=== PATIENT | female | born 1965 | race African-American/Black ===

== ENCOUNTER 2017-04-04 12:47 | Emergency (ER) | payer OTHER ==
[~2017-04-04] VITALS: Ht 157.5 cm; Wt 95.5 kg
[2017-04-04] MEDS ORDERED: BACL10TA PO (12:53)
[2017-04-04] MEDS ORDERED: TRIA1CAP2 PO (12:53)
[2017-04-04] MEDS ORDERED: MIRAUD PO (12:53)
[2017-04-04] MEDS ORDERED: IBUP-2070 PO (12:53)
[2017-04-04 14:23] LABS: HEMATOCRIT 40.2 % (36-46); HEMOGLOBIN 13.2 g/dL (12.0-16.0); LYMPHOCYTES # (AUTO) 1.9 K/uL (1.0-4.8); MEAN CORPUSCULAR HGB CONC 32.8 G/dL (31.0-37.0); MEAN CORPUSCULAR VOLUME 88 fL (80-100); MONOCYTES # (AUTO) 0.3 K/uL (0.1-1.0); PLATELET COUNT (AUTO) 292 K/uL (150-450); RED BLOOD CELL COUNT(AUTO) 4.54 MIL/uL (4.00-5.20); RED CELL DISTRIBUTION WIDTH 13.4 % (11.5-14.5); WHITE BLOOD COUNT (AUTO) 10.1 K/uL (4.5-11.0)
[2017-04-04 14:31] LABS: ANION GAP 6 mmol/L (8-16); BASOPHILS % (AUTO) 0.3 % (0.0-2.0); CALCIUM, TOTAL 8.8 mg/dL (8.8-10.5); CARBON DIOXIDE 31 mmol/L (22-29); CHLORIDE 103 mmol/L (98-107); CREATININE 0.66 mg/dL (0.60-1.30); GLOMERULAR FILTR. RATE CALC > 60 mL/min (>60); LYMPHOCYTES % (AUTO) 18.1 % (22.0-44.0); MONOCYTES % (AUTO) 3.1 % (2.0-9.0); POTASSIUM 3.7 mmol/L (3.5-5.1); SODIUM SERUM 140 mmol/L (136-145); UREA NITROGEN, BLOOD 7 mg/dL (7-18)
[2017-04-04 14:32] LABS: BASOPHILS # (AUTO) 0.03 K/uL (0.00-0.20); EOSINOPHILS # (AUTO) 0.05 K/uL (0.00-0.70); EOSINOPHILS % (AUTO) 0.5 % (1.0-6.0)
[2017-04-04 14:36] LABS: PROTHROMBIN TIME 10.7 SEC (9.4-11.6)
[2017-04-04 14:37] LABS: ALANINE AMINOTRANSFERASE 23 U/L (12-78); ALBUMIN 3.3 g/dL (3.4-5.0); ASPARTATE AMINOTRANSFERASE 19 U/L (15-37); BILIRUBIN,TOTAL 0.5 mg/dL (0.1-1.0); TOTAL PROTEIN, SERUM 7.8 g/dL (6.4-8.2)
[2017-04-04 15:08] LABS: ADD UA MICROSCOPIC YES; APPEARANCE,URINE CLOUDY (CLEAR); GLUCOSE, URINE (UA) NEGATIVE (NEGATIVE); KETONES,URINE NEGATIVE (NEGATIVE); LEUKOCYTE ESTERASE ,URINE NEGATIVE (NEGATIVE); OCCULT BLOOD,URINE LARGE (NEGATIVE); PROTEIN,URINE NEGATIVE (NEGATIVE)
[2017-04-04 15:19] LABS: SQUAMOUS EPITHELIAL CELL,UR Moderate /LPF (None Seen)
[2017-04-04] MEDS ORDERED: ONDANSETRON HCL 4 MG/2 ML VIAL IVP ONE ×2 (15:45→19:00)
[2017-04-04] MEDS ORDERED: HYDROmorphone 2 MG/ML SYRINGE IVP ONE (17:15)
[2017-04-04] MEDS ORDERED: SODIUM PHOS/SODIUM BIPHOS 133 ML ENEMA PR ONE (18:15)
[2017-04-04 18:58] VITALS: BP 135/82
== END 2017-04-04 19:10 | disposition home or self-care (01) ==
LOC: EMS 12:48
DX: K59.00 Constipation, unspecified (principal); F17.210 Nicotine dependence, cigarettes, uncomplicated
CPT/HCPCS: 36415; 74022; 74176; 80053; 81001; 83690; 85025; 85610; 85730; 93005; 96374; 96375; 96376; 99285; J1170; J2405

== ENCOUNTER 2017-09-16 17:43 | Emergency (ER) | payer OTHER ==
[~2017-09-16] VITALS: Ht 157.5 cm; Wt 97.7 kg
[~2017-09-16 17:43] MED LIST: BACL10TA PO; IBUP-2070 PO; MIRAUD PO; TRIA1CAP2 PO
[2017-09-16 19:26] VITALS: BP 149/89
== END 2017-09-16 19:27 | disposition home or self-care (01) ==
LOC: EMS 17:45
DX: S80.861A Insect bite (nonvenomous), right lower leg, initial encounter (principal); F17.210 Nicotine dependence, cigarettes, uncomplicated; R03.0 Elevated blood-pressure reading, without diagnosis of hypertension; W57.XXXA Bitten or stung by nonvenomous insect and other nonvenomous arthropods, initial encounter; Y93.89 Activity, other specified; Y92.89 Other specified places as the place of occurrence of the external cause; Y99.8 Other external cause status
CPT/HCPCS: 99283

== ENCOUNTER 2017-10-23 13:10 | Emergency (ER) | payer OTHER ==
[~2017-10-23] VITALS: Ht 154.9 cm; Wt 97.7 kg
[2017-10-23 13:59] LABS: BASOPHILS # (AUTO) 0.03 K/uL (0.00-0.20); BASOPHILS % (AUTO) 0.2 % (0.0-2.0); EOSINOPHILS # (AUTO) 0.09 K/uL (0.00-0.70); EOSINOPHILS % (AUTO) 0.74 % (1.0-6.0); HEMATOCRIT 40.1 % (36-46); HEMOGLOBIN 13.2 g/dL (12.0-16.0); LYMPHOCYTES # (AUTO) 2.6 K/uL (1.0-4.8); MEAN CORPUSCULAR HGB CONC 32.9 G/dL (31.0-37.0); MEAN CORPUSCULAR VOLUME 88 fL (80-100); MONOCYTES # (AUTO) 0.5 K/uL (0.1-1.0); NEUTROPHILS # (AUTO) 9.5 K/uL (1.8-7.7); PLATELET COUNT (AUTO) 257 K/uL (150-450); RED BLOOD CELL COUNT(AUTO) 4.55 MIL/uL (4.00-5.20); RED CELL DISTRIBUTION WIDTH 13.8 % (11.5-14.5); WHITE BLOOD COUNT (AUTO) 12.7 K/uL (4.5-11.0)
[2017-10-23 14:00] LABS: RBC MORPHOLOGY COMMENT NORMAL RBC MORPH
[2017-10-23 14:22] LABS: ANION GAP 11 mmol/L (8-16); CALCIUM, TOTAL 8.9 mg/dL (8.8-10.5); CARBON DIOXIDE 28 mmol/L (22-29); CHLORIDE 102 mmol/L (98-107); CREATININE 0.79 mg/dL (0.60-1.30); GLOMERULAR FILTR. RATE CALC > 60 mL/min (>60); SODIUM SERUM 141 mmol/L (136-145); UREA NITROGEN, BLOOD 10 mg/dL (7-18)
[2017-10-23 14:25] LABS: ALANINE AMINOTRANSFERASE 23 U/L (12-78); ALBUMIN 3.4 g/dL (3.4-5.0); ASPARTATE AMINOTRANSFERASE 20 U/L (15-37); BILIRUBIN,TOTAL 0.3 mg/dL (0.1-1.0); TOTAL PROTEIN, SERUM 7.5 g/dL (6.4-8.2)
[2017-10-23] MEDS ORDERED: ONDANSETRON HCL 4 MG/2 ML VIAL IVP ONE (15:00)
[2017-10-23] MEDS ORDERED: MORPHINE SULFATE 4 MG/ML SYRINGE IVP ONE (15:00)
[2017-10-23] MEDS ORDERED: SODIUM CHLORIDE 0.9% 1,000 ML IV ONE (15:00)
[2017-10-23] MEDS ORDERED: POTASSIUM CHLORIDE 20 MEQ ER TABLET PO ONE (15:00)
[2017-10-23 15:25] LABS: ADD UA MICROSCOPIC YES; APPEARANCE,URINE CLEAR (CLEAR); GLUCOSE, URINE (UA) NEGATIVE (NEGATIVE); KETONES,URINE NEGATIVE (NEGATIVE); LEUKOCYTE ESTERASE ,URINE TRACE (NEGATIVE); OCCULT BLOOD,URINE NEGATIVE (NEGATIVE); PH,URINE 7.5 (5.0-8.0); PROTEIN,URINE NEGATIVE (NEGATIVE)
[2017-10-23 15:29] LABS: RBC,URINE None Seen /HPF (0-2); SQUAMOUS EPITHELIAL CELL,UR Many /LPF (None Seen); WBC,URINE 0-2 /HPF (0-5)
[2017-10-23] MEDS ORDERED: KETOROLAC TROMETHAMINE 30 MG/ML VIAL IVP ONE (16:15)
[2017-10-23 17:33] VITALS: BP 127/82
== END 2017-10-23 17:34 | disposition home or self-care (01) ==
LOC: EMS 13:11
DX: R10.13 Epigastric pain (principal); M54.9 Dorsalgia, unspecified; F17.210 Nicotine dependence, cigarettes, uncomplicated; G89.29 Other chronic pain; F12.90 Cannabis use, unspecified, uncomplicated
CPT/HCPCS: 36415; 74176; 80053; 81001; 83690; 84484; 85025; 93005; 96361; 96374; 96375; 99285; 99406; J1885; J2270; J2405; J7030

== ENCOUNTER 2018-03-23 08:05 | Emergency (ER) | payer OTHER ==
[~2018-03-23] VITALS: Ht 157.5 cm; Wt 95.5 kg
[2018-03-23] MEDS ORDERED: VITAD50000 PO (08:15)
[2018-03-23] MEDS ORDERED: KETOROLAC TROMETHAMINE 60 MG/2 ML VIAL IM ONE (10:00)
[2018-03-23 10:08] VITALS: BP 148/81
== END 2018-03-23 11:02 | disposition home or self-care (01) ==
LOC: EMS 08:06
DX: L73.9 Follicular disorder, unspecified (principal); R03.0 Elevated blood-pressure reading, without diagnosis of hypertension; F17.210 Nicotine dependence, cigarettes, uncomplicated
CPT/HCPCS: 96372; 99283; J1885

== ENCOUNTER 2020-01-06 10:10 | Emergency (ER) | payer OTHER ==
[~2020-01-06] VITALS: Ht 157.5 cm; Wt 100.0 kg
[~2020-01-06 10:10] MED LIST changes: -BACL10TA PO; +CHOL500043 PO; -IBUP-2070 PO; -MIRAUD PO; -TRIA1CAP2 PO
[2020-01-06] MEDS ORDERED: OXYC-38 PO (10:27)
[2020-01-06] MEDS ORDERED: IBUPROFEN 400 MG TABLET PO ONE (11:30)
[2020-01-06 12:29] VITALS: BP 133/86
== END 2020-01-06 13:01 | disposition home or self-care (01) ==
LOC: EMS 10:12
DX: S93.492A Sprain of other ligament of left ankle, initial encounter (principal); K21.9 Gastro-esophageal reflux disease without esophagitis; Z98.890 Other specified postprocedural states; Z87.891 Personal history of nicotine dependence; Z79.899 Other long term (current) drug therapy; X50.9XXA Other and unspecified overexertion or strenuous movements or postures, initial encounter; Y93.89 Activity, other specified; Y92.89 Other specified places as the place of occurrence of the external cause; Y99.8 Other external cause status
CPT/HCPCS: 29540